=== PATIENT | male | born 1985 | race Caucasian/White ===

== ENCOUNTER 2024-07-31 14:24 | Emergency (ER) | payer SELFPAY ==
[2024-07-31] MEDS ORDERED: Bupivacaine 0.5% 10 ML VIAL ONE (14:25)
[2024-07-31] MEDS ORDERED: ALPRAZolam 0.5 MG TAB ONE (14:28)
[2024-07-31] MEDS ORDERED: Sodium Chloride 0.9% 100 ML ONE (15:10)
[2024-07-31] MEDS ORDERED: cefTRIAXone (ROCEPHIN) 2 GM VIAL ONE (15:11)
[2024-07-31] MEDS ORDERED: Ketamine 50 MG/ML (10ML VIAL) ONE (15:15)
[2024-07-31] MEDS ORDERED: Doxycycline 100 MG CAP ONE (15:20)
[2024-07-31 15:41] LABS: #Basophils 0.1 thou/uL (0.0-0.2); #Eosinophils 0.2 thou/uL (0.0-0.7); #Lymphocytes 2.4 thou/uL (1.20-3.40); #Monocytes 0.4 thou/uL (0.11-0.59); #Neutrophils 4.3 thou/uL (1.40-6.50); %Basophils 1.2 % (0.0-1.0); %Eosinophils 2.8 % (0.0-10.0); %Lymphocytes 31.8 % (21.0-51.0); %Monocytes 5.9 % (0.0-10.0); %Neutrophils 58.2 % (42.0-75.0); Hematocrit 44.8 % (42.0-52.0); Hemoglobin 15.4 g/dL (14.0-18.0); Mean Corpuscular HGB CONC 34.5 g/dL (32.0-36.0); Mean Corpuscular Hemoglobin 29.6 pg (27.0-31.0); Mean Corpuscular Volume 85.8 fl (78.0-98.0); Mean Platelet Volume 6.2 fL (7.4-10.4); Platelet Count 244 10x3/uL (130-400); RBC Distribution Width 10.7 % (11.5-14.5); Red Blood Cell (RBC) Count 5.22 mill/uL (4.70-6.10); White Blood Cell (WBC) Count 7.4 10x3/uL (4.8-10.8)
[2024-07-31 15:42] LABS: ALT (SGPT) 68 U/L (8-55); AST (SGOT) 33 U/L (5-34); Albumin 4.5 g/dL (3.5-5.0); Alkaline Phosphatase 112 U/L (40-110); Anion Gap 14 mmol/L (10-20); BUN (Urea Nitrogen) 20 mg/dL (8.9-20.6); Bilirubin, Total 0.4 mg/dL (0.2-1.2); Calc. Creatinine Clearance 0 mL/min (70-130); Carbon Dioxide 24 mmol/L (22-29); Chloride 104 mmol/L (98-107); Estimated GFR 82; Globulin 3.7 g/dL (2.4-3.5); Glucose 99 mg/dL (70-105); Protein, Total 8.2 g/dL (6.0-8.3); Sodium 138 mmol/L (136-145)
== END 2024-07-31 16:20 | disposition short-term general hospital (02) ==
LOC: BURERS 14:24
DX: S61.042A Puncture wound with foreign body of left thumb without damage to nail, initial encounter (principal); W56.52XA Struck by other fish, initial encounter; Y93.89 Activity, other specified
CPT/HCPCS: 80053; 85025; 96365; J0696; J3490